=== PATIENT | male | born 1950 ===

== ENCOUNTER 2018-07-12 07:54 | Day surgery (SDC) | payer MEDICARE, BC ==
--- NOTE | 2018-07-09 17:30 | Pre-op HX & Phy Repo 2 SIG ---
DATE OF ADMISSION: 07/12/2018 DATE OF SURGERY: 07/12/2018 PREOPERATIVE DIAGNOSIS: Vitreous hemorrhage with elevated pressure, left eye. PROCEDURES TO BE PERFORMED: Pars plana vitrectomy, endolaser, and Avastin injection, left eye. BRIEF NOTE: This is a first [place] admission for this patient. He is a very nice 67-year-old gentleman with a history of diabetes, high blood pressure, and a nonclearing vitreous hemorrhage in the left eye. PAST OCULAR HISTORY: Negative for surgery. He has undergone Avastin injections in my office in the past. PAST MEDICAL HISTORY: Remarkable for diabetes for at least 10 years as well as hypertension for the same amount of time. MEDICATIONS: He is on metoprolol, hydralazine, losartan, amiodarone, rosuvastatin, and Lasix. ALLERGIES: He has no known allergies. PHYSICAL EXAMINATION: Best vision at the time of admission was counting fingers at 6 feet in the right eye and hand motions in the left with pressures of 11 and 22. The anterior segment on the right showed a sluggish reaction. The conjunctiva and cornea were clear. There was a moderate nuclear cataract. The left fundus showed again a sluggish pupillary reaction. There were ghost cells in the anterior chamber and possible rubeosis. Creasy diabetic nuclear opacity was seen in the lenses. Funduscopic examination of the right eye showed a 0.3 cup. There was advanced macular edema and what appeared to be a central retinal artery occlusion superimposed upon background diabetic retinopathy. The left fundus could only be seen nasally. There was a moderately dense vitreous hemorrhage. The nerve showed some degree of pallor. The retina was attached. General physical examination to be done by Dr. Caceres. ASSESSMENT: 1. Severe diabetic retinopathy both eyes with nonclearing vitreous hemorrhage, left eye. 2. Elevated pressure, left eye with possible ocular ischemia. PLAN: The plan is to perform a pars plana vitrectomy on the left on Thursday. The risks and benefits of surgery have been gone over with the patient including potential for infection, hemorrhage, inability to correct the pressure, the need for additional operations, cataract worsening, and the possibility of loss of the eye. The risk of anesthesia was discussed. The patient understands and consents to the surgery, which will be performed on Thursday morning. Amrik Teran M.D. DR: KRYS JOB#: [id number] CC:
[2018-07-12] VITALS (11 sets, daily range): BP systolic 138–177; BP diastolic 66–98
[~2018-07-12] VITALS: Ht 165.1 cm; Wt 96.6 kg
[~2018-07-12 07:54] MED LIST: Avastin 10mg Inj IVITRE ONE; Pred Forte 1% Opth Susp 1ml LEFT EYE SCH
[2018-07-12 08:45] LABS: BASOPHILS % (AUTO) 1.2 % (0.0-2.0); EOSINOPHILS % (AUTO) 3.4 % (0.0-3.0); HEMATOCRIT 39.2 % (42.0-52.0); HEMOGLOBIN 11.8 G/DL (14.2-18.0); LYMPHOCYTES % (AUTO) 21.2 % (20.0-45.0); MEAN CORPUSCULAR VOLUME 66 FL (80-99); MONOCYTES % (AUTO) 6.3 % (1.0-10.0); NEUTROPHILS % (AUTO) 67.8 % (45.0-75.0); PLATELET COUNT 225 K/UL (150-450); RED BLOOD COUNT 5.95 M/UL (4.70-6.10); RED CELL DISTRIBUTION WIDTH 12.8 % (11.6-14.8)
[2018-07-12] MEDS ORDERED: Vigamox Opth Soln 3ml ONE (08:50)
[2018-07-12] MEDS ORDERED: Cyclopentolate 1% Opth Sol 2ml ONE (08:50)
[2018-07-12] MEDS ORDERED: Flurbiprofen 0.03% Opth Sol 2.5ml ONE (08:50)
[2018-07-12] MEDS ORDERED: Phenylephrine 2.5% Op 2ml Soln ONE (08:50)
[2018-07-12] MEDS: Cyclopentolate 1% Opth Sol 2ml LEFT EYE SCH ×3 (08:51→09:14)
[2018-07-12] MEDS: Vigamox Opth Soln 3ml LEFT EYE SCH ×3 (08:51→09:15)
[2018-07-12] MEDS: Phenylephrine 2.5% Op 2ml Soln LEFT EYE SCH ×3 (08:51→09:14)
[2018-07-12] MEDS: Flurbiprofen 0.03% Opth Sol 2.5ml LEFT EYE SCH ×3 (08:52→09:15)
[2018-07-12 09:00] LABS: ANION GAP 6 mmol/L (5-15); BLOOD UREA NITROGEN 29 mg/dL (7-18); CARBON DIOXIDE 28 MMOL/L (21-32); CHLORIDE 104 MMOL/L (98-107); CREATININE 1.9 MG/DL (0.55-1.30); POTASSIUM 4.5 MMOL/L (3.5-5.1); SODIUM 138 MMOL/L (136-145)
[2018-07-12] MEDS ORDERED: ASPIRIN325 MG ORAL (09:04)
[2018-07-12] MEDS ORDERED: LOSARTAN POTASS50 MG ORAL (09:04)
--- NOTE | 2018-07-12 09:04 | Pre-Procedure Note/Attestation ---
Pre-Procedure Note/Attestation Complete Prior to Procedure Planned Procedure: left Procedure Narrative: PPV, membrane peel, endolaser, Avastin injection Left Eye Indications for Procedure Pre-Operative Diagnosis: Non-clearing vitreous hemorrhage Left eye Attestation I attest that I discussed the nature of the procedure; its benefits; risks and complications; and alternatives (and the risks and benefits of such alternatives ), prior to the procedure, with the patient (or the patient's legal admissions representative). I attest that, if there was a reasonable possibility of needing a blood transfusion, the patient (or the patient's legal admissions representative) was given the [facility] standardized written summary, pursuant to the [place] Blood Safety Act ([place] Health and Safety Code # 1645, as amended). I attest that I re-evaluated the patient just prior to the surgery and that there has been no change in the patient's H&P, except as documented below: BRIGIDO HUERTA Jul 12, 2018 09:04
[2018-07-12] MEDS ORDERED: SINEMET 25-1001 EAC1 ORAL (09:05)
[2018-07-12] MEDS ORDERED: AMIODARONE HCL200 MG ORAL (09:05)
[2018-07-12] MEDS ORDERED: HYDRALAZINE HCL50 MG ORAL (09:08)
[2018-07-12] MEDS ORDERED: FUROSEMIDE40 MG ORAL (09:09)
[2018-07-12] MEDS ORDERED: METOPROLOL SUCC25 MG ORAL (09:10)
[2018-07-12] MEDS ORDERED: LABETALOL HCL200 MG ORAL (09:11)
[2018-07-12] MEDS ORDERED: GABAPENTIN300 MG ORAL (09:12)
[2018-07-12] MEDS ORDERED: METHAZOLAMIDE50 MG ORAL (09:12)
[2018-07-12] MEDS ORDERED: LANTUS SOL100 UNIT/1 SUBQ (09:13)
[2018-07-12] MEDS ORDERED: TRULICITY1.5 MG/0.5 SQ (09:19)
[2018-07-12] MEDS ORDERED: SYMBICORT 16010.2 G1 IH (09:23)
[2018-07-12] MEDS ORDERED: XALATAN2.5 ML RIGHT EYE (09:24)
[2018-07-12] MEDS ORDERED: BRIMONIDINE TART5 ML LEFT EYE (09:24)
[2018-07-12] MEDS ORDERED: rusuvastatin PO (09:33)
[2018-07-12] MEDS ORDERED: fentaNYL 100 mcg/2 mL IV ONE (09:54)
[2018-07-12] MEDS ORDERED: Propofol 200mg/20ml IV ONE (09:55)
[2018-07-12] MEDS ORDERED: Midazolam 2mg/2ml Inj ONE (09:55)
[2018-07-12] MEDS ORDERED: Kenalog-40 1ml Vial ONE (09:56)
[2018-07-12] MEDS ORDERED: Maxitrol Opth Oint 3.5gm ONE (09:56)
[2018-07-12] MEDS ORDERED: Lidocaine 2% MPF 5ml Vial INJ ONE (09:56)
[2018-07-12] MEDS ORDERED: EPINEPHrine 1mg/1ml Amp ONE (09:56)
[2018-07-12] MEDS ORDERED: Povidone-Iodine 5% opth solution ONE (09:57)
[2018-07-12] MEDS ORDERED: Dexamethasone 4mg/ml vial ONE (09:57)
[2018-07-12] MEDS ORDERED: Kenalog-10 5ml Inj ONE (09:57)
[2018-07-12] MEDS ORDERED: BSS 500ml btl ONE (09:57)
[2018-07-12] MEDS ORDERED: Pred Forte 1% Opth Susp 1ml ONE (09:57)
[2018-07-12] MEDS ORDERED: BSS 15ml BTL ONE (09:57)
[2018-07-12] MEDS ORDERED: Tetracaine 0.5% Opth 4ml Soln ONE (09:58)
[2018-07-12] MEDS ORDERED: Bupivacaine 0.75% 30ml vial INJ ONE (09:58)
[2018-07-12] MEDS ORDERED: Sodium Hyaluronate 10 mg/ml 0.85ml ONE (09:58)
[2018-07-12] MEDS ORDERED: NS Irrig 1000ml ONE (10:00)
[2018-07-12] MEDS ORDERED: LR 1000ml ONE (10:00)
[2018-07-12] MEDS ORDERED: Sterile Water Irrig 1000ml IRRIG ONE (10:00)
[2018-07-12] MEDS ORDERED: LR 1000ml 1,000 ML IVLG SCH (10:53)
--- NOTE | 2018-07-12 10:53 | Anethesia Preoperative Eval ---
Anesthesia Pre-op PMH/ROS General Date of Evaluation: Jul 12, 2018 Time of Evaluation: 10:04 Anesthesiologist: Karyna ASA Score: ASA 3 Mallampati Score Class I : Soft palate, uvula, fauces, pillars visible Class II: Soft palate, uvula, fauces visible Class III: Soft palate, base of uvula visible Class IV: Only hard plate visible Mallampati Classification: Class III Surgeon: Jeffry Diagnosis: L eye viyreous hemorrhage Surgical Procedure: L eye PPV Anesthesia History: none Family History: no anesthesia problems Allergies: Coded Allergies: No Known Allergies (Unverified , 07/09/18) Medications: see eMAR Past Medical History Cardiovascular: Reports: HTN, arrhythmia - A fib.; Denies: CAD, MS, valve dz, other Pulmonary: Reports: CURT - CPAP at home; Denies: asthma, COPD, other Gastrointestinal/Genitourinary: Reports: CRI - Cr. 1.9; Denies: GERD, ESRD, other Neurologic/Psychiatric: Reports: depression/anxiety, other - Early Parkinsons; Denies: dementia, CVA, TIA Endocrine: Reports: DM - poorly controled on insulin; Denies: hypothyroidism, steroids, other HEENT: Reports: glaucoma - R eye ; Denies: cataract (L), cataract (R), [place] (L[place] (R), other Hematology/Immune: Reports: anemia - mild; Denies: DVT, bleeding disorder, other Musculoskeletal/Integumentary: Denies: OA, RA, DJD, DDD, edema, other Other: obesity PMH Narrative: as above PSxH Narrative: circumcision Anesthesia Pre-op Phys. Exam Physician Exam Last Vital Signs Date Time Temp Pulse Resp B/P (MAP) Pulse Ox O2 Delivery O2 Flow Rate FiO2 07/12/18 09:25 Room Air Constitutional: NAD Neurologic: CN 2-12 intact Cardiovascular: RRR, no M/R/G Respiratory: CTA Gastrointestinal: other - obesity Airway Exam Mallampati Score: Class III MO: limited Neck: short ROM: limited Teeth: missing Dentures: no upper, no lower Anesthesia Pre-op A/P Labs Hematology Test 07/12/18 08:30 White Blood Count 9.0 K/UL (4.8-10.8) Red Blood Count 5.95 M/UL (4.70-6.10) Hemoglobin 11.8 G/DL (14.2-18.0) L Hematocrit 39.2 % (42.0-52.0) L Mean Corpuscular Volume 66 FL (80-99) L Mean Corpuscular Hemoglobin 19.9 PG (27.0-31.0) L Mean Corpuscular Hemoglobin Concent 30.2 G/DL (32.0-36.0) L Red Cell Distribution Width 12.8 % (11.6-14.8) Platelet Count 225 K/UL (150-450) Mean Platelet Volume 7.8 FL (6.5-10.1) Neutrophils (%) (Auto) 67.8 % (45.0-75.0) Lymphocytes (%) (Auto) 21.2 % (20.0-45.0) Monocytes (%) (Auto) 6.3 % (1.0-10.0) Eosinophils (%) (Auto) 3.4 % (0.0-3.0) H Basophils (%) (Auto) 1.2 % (0.0-2.0) Chemistry Test 07/12/18 08:30 Sodium Level 138 MMOL/L (136-145) Potassium Level 4.5 MMOL/L (3.5-5.1) Chloride Level 104 MMOL/L (98-107) Carbon Dioxide Level 28 MMOL/L (21-32) Anion Gap 6 mmol/L (5-15) Blood Urea Nitrogen 29 mg/dL (7-18) H Creatinine 1.9 MG/DL (0.55-1.30) H Estimat Glomerular Filtration Rate 35.8 mL/min (>60) Glucose Level 158 MG/DL (74-106) H Calcium Level 9.0 MG/DL (8.5-10.1) Studies Pre-op Studies: EKG - SR Risk Assessment & Plan Assessment: ASA 3 Plan: MAC with retrobulbar block Status Change Before Surgery: No Pre-Antibiotics Drug: none Philippe Troncoso MD Jul 12, 2018 10:53
[2018-07-12] MEDS ORDERED: fentaNYL 100 mcg/2 mL IV PRN (11:00)
--- NOTE | 2018-07-12 11:25 | Immediate Post-Op Evaluation ---
Immediate Post-Op Evalulation Immediate Post-Op Evalulation Procedure: L eye PPV laser treatment Date of Evaluation: Jul 12, 2018 Time of Evaluation: 11:23 IV Fluids: 400 Blood Products: none Estimated Blood Loss: min Urinary Output: none Blood Pressure Systolic: 176 Blood Pressure Diastolic: 84 Pulse Rate: 62 Respiratory Rate: 20 O2 Sat by Pulse Oximetry: 98 Temperature (Fahrenheit): 97.6 Pain Score (1-10): 1 Nausea: No Vomiting: No Complications none Patient Status: awake, patent, none Hydration Status: adequate Philippe Troncoso MD Jul 12, 2018 11:25
--- NOTE | 2018-07-12 11:25 | Brief Operative Note ---
Immediate Post Operative Note Operative Note Chief Complaint: Clouds in vision Left eye Pre-op Diagnosis: Non-clearing vitreous hemorrhage Left eye Procedure: PPV, endolaser 2416 spots, Avastin injection Left eye Post-op Diagnosis: same as pre-op Surgeon: jermaine Second Operator: none Additional Surgeons: none Anesthesiologist: Karyna Anesthesia: MAC Specimen: none Complications: none Condition: stable Fluids: Per anesthesia Estimated Blood Loss: none Drains: none Implant(s) used?: No BRIGIDO HUERTA Jul 12, 2018 11:24
[2018-07-12] MEDS ORDERED: Norco 5mg/325mg tab ORAL PRN (11:30)
[2018-07-12] MEDS ORDERED: acetaZOLAMIDE 500mg Sequel ORAL ONE ×2 (11:55→12:00)
--- NOTE | 2018-07-12 12:00 | Operative Note - Dictated ---
DATE OF OPERATION: 07/12/2018 PREOPERATIVE DIAGNOSIS: Vitreous hemorrhage nonclearing, left eye. POSTOPERATIVE DIAGNOSIS: Vitreous hemorrhage nonclearing, left eye. PROCEDURES: 1. Pars plana vitrectomy. 2. Endolaser. 3. Avastin injection, left eye. SURGEON: Amrik Teran M.D. ICE CREAM MACHINE OPERATOR: None. ANESTHESIA: Local with sedation. JUSTIFICATION FOR SURGERY: This 67-year-old gentleman with a long history of diabetes, developed poor vision related to nonclearing vitreous hemorrhages and untreated diabetic retinopathy. He was admitted for surgery. BRIEF NOTE: The patient was brought to the operating room, placed on the OR table in supine position. After a time-out was performed and agreed upon by the staff, and initial monitoring secured by Dr. Troncoso, retrobulbar and Van Lint blocks given in standard way. When the blocks taken effect, he was prepped and draped in normal manner. A lid speculum was inserted into the left eye. Using a 23-gauge trocar system, cannulas were placed in all except infranasal quadrant. Infusion secured inferotemporally. Vitrectomy was begun posterior to the lens taking care to avoid contact. A central core vitrectomy was done followed by peripheral vitrectomy leaving a small vitreous skirt. The hyaloid was attached to an area of fibrosis nasal to the optic nerve and this was separately flushed with the retina. The macula was noted to be flat. The Endolaser was then brought into the eye and a power of 0.3 katz, duration 0.2 seconds, a total of 2416 lesions were applied in a broad band extending from near the ora niraj to the edge of the major arcades. No problems were encountered. Scleral depression was then done and no peripheral breaks, tears, or detachments were seen. No bleeding was encountered. The two superior cannulas were removed and the sclerotomy was closed with 8-0 Vicryl suture with the knot buried. The infusion line was disconnected and through the infusion cannula, 1.25 mg of Avastin was injected. The eye was reinflated and this sclerotomy also closed with 8-0 Vicryl. Subconjunctival Decadron and gentamicin were then injected inferiorly and Maxitrol and atropine ointments were instilled as well as topical prednisolone and moxifloxacin drops. The eye was patched and shielded. The patient taken to recovery in excellent condition. There were no complications. Amrik Teran M.D. DR: DAGO JOB#: [id number] CC: Amrik Teran M.D.; Fax#: [phone]
--- NOTE | 2018-07-12 19:54 | Cardiology Report ---
APPROVED REPORT EKG Measurement Heart [id number] Normal sinus rhythm Left axis deviation LVH Septal infarct, age undetermined Abnormal ECG
--- NOTE | 2018-07-14 20:45 | Pre-op HX & Phy Repo 2 SIG ---
DATE OF ADMISSION: 07/12/2018 PRESURGICAL INTERNAL MEDICINE HISTORY AND PHYSICAL REASON FOR EVALUATION: I was asked by Dr. César Rhodes to see this 67-year-old male who is going for surgery of the left eye scheduled for 07/16/2018. Please see full Ophthalmology History and Physical per Dr. César Rhodes. The patient was evaluated. Chart was reviewed. PAST MEDICAL HISTORY/REVIEW OF SYSTEMS: Remarkable for history of atrial fibrillation 10 years ago converted to normal sinus rhythm by medication, history of myocardial infarction also 10 years ago, Parkinson disease, history of bronchial asthma, occasional use of inhaler Symbicort; history of obesity, history of abdominal aortic aneurysm, about 6 cm in diameter and the patient will be planned for surgery. The patient has diabetes mellitus, on insulin and peripheral diabetic neuropathy. The patient was told he has renal insufficiency effect left kidney by 60%. Denied history of anemia or thyroid problem. PAST SURGICAL HISTORY: None. FAMILY HISTORY: Both parents had diabetes mellitus. Mother also from colon cancer and father prostatic cancer. ALLERGIES: Not known. PRESENT MEDICATIONS: Include baby aspirin 81 mg, levodopa, hydralazine, Crestor, albuterol, metoprolol, NovoLog, Lantus, Symbicort inhalers, and amiodarone eye drops. HABITS: The patient smoked for more than 30 years ago. No alcohol socially. Denied drug abuse. PHYSICAL EXAMINATION: GENERAL: The patient is alert, well-developed, well-nourished male in his 60s. VITAL SIGNS: Blood pressure 153/90, temperature 97.1, pulse 65, respiration 18, and O2 saturation 97%. The patient's BMI is 35 kg/m2. SKIN: Multiple mosquito bites and dermatitis. Pale and warm. No diaphoresis. LYMPH NODES: Not enlarged. HEENT: Head, normocephalic and atraumatic. Eyes, full description per Dr. Amrik Teran. NECK: Supple. No jugular distention. Carotids artery +2. Trachea midline. Mouth, clear and moist. No dentures. CHEST: No deformity or asymmetry. LUNGS: No rales or rhonchi. HEART: Sinus 65 per minute. No murmur. No S3, S4. No ectopy. ABDOMEN: Soft. Obese. No palpable mass. No rebound. EXTREMITIES: No edema. No varicose vein. GENITOURINARY: Normal for gender. CVA nontender. NERVOUS SYSTEM: Peripheral neuropathy and Parkinson disease. DIAGNOSTIC DATA: ECG, normal sinus rhythm, left axis deviation, septal [place], old. High blood sugar this morning mg/dL. LABORATORY DATA: Hemoglobin 11.9. Creatinine 1.9. Potassium 4.5. Hematocrit 35.5%. IMPRESSION: 1. Vitreous hemorrhage, left eye. 2. Insulin-dependent diabetes mellitus. 3. Hypertension. 4. Abdominal aortic aneurysm. 5. Anemia. 6. Obesity. BMI is 35. 7. Chronic kidney disease, stage 3. 8. Parkinson disease. 9. Anterior wall myocardial infarction by EKG, old and history of atrial fibrillation. The patient did not eat or drink from last night. The patient will for pars plana vitrectomy, membrane peel, endolaser, left eye per Dr. Amrik Teran. CONCLUSION: The patient's vital signs are stable. EKG is sinus. Blood sugar fairly controlled. The patient's condition optimized for surgery. Thank you very much, Dr. Teran, for privilege to participate in presurgical care of this interesting patient. Jia Caceres M.D. DR: GOOD JOB#: [id number] CC:
[2018-07-20 09:56] VITALS: BP 136/64
--- NOTE | 2018-07-20 09:56 | 48 Hour Post Anesthesia Eval ---
Post Anesthesia Evaluation Procedure: L eye PPV laser treatment Date of Evaluation: Jul 12, 2018 Time of Evaluation: 12:25 Blood Pressure Systolic: 136 0: 64 Pulse Rate: 68 Respiratory Rate: 20 Temperature (Fahrenheit): 97.6 O2 Sat by Pulse Oximetry: 98 Airway: patent Nausea: No Vomiting: No Pain Intensity: 2 Hydration Status: adequate Cardiopulmonary Status: stable Mental Status/LOC: patient returned to baseline Follow-up Care/Observations: n/a Post-Anesthesia Complications: none Follow-up care needed: ready to discharge Philippe Troncoso MD Jul 20, 2018 09:56
== END 2018-07-12 12:35 | disposition home or self-care (01) ==
LOC: SUR 07:54
DX: H43.12 Vitreous hemorrhage, left eye (principal); E11.311 Type 2 diabetes mellitus with unspecified diabetic retinopathy with macular edema; H34.9 Unspecified retinal vascular occlusion; E11.42 Type 2 diabetes mellitus with diabetic polyneuropathy; Z79.4 Long term (current) use of insulin; I25.2 Old myocardial infarction; G20 Parkinson's disease; J45.909 Unspecified asthma, uncomplicated; E66.9 Obesity, unspecified; Z68.35 Body mass index [BMI] 35.0-35.9, adult; I71.4 Abdominal aortic aneurysm, without rupture; G47.33 Obstructive sleep apnea (adult) (pediatric); F32.9 Major depressive disorder, single episode, unspecified; F41.9 Anxiety disorder, unspecified; H40.9 Unspecified glaucoma; D64.9 Anemia, unspecified; E11.22 Type 2 diabetes mellitus with diabetic chronic kidney disease; I12.9 Hypertensive chronic kidney disease with stage 1 through stage 4 chronic kidney disease, or unspecified chronic kidney disease; N18.3 Chronic kidney disease, stage 3 (moderate); Z79.82 Long term (current) use of aspirin
CPT/HCPCS: 36415; 67039; 80048; 82962; 85025; 93005; J0171; J1100; J2250; J2704; J3010; J3470; J3490; J9035; 94003; 94150